=== PATIENT | female | born 1970 | race Two or more races ===

== ENCOUNTER 2021-03-31 16:44 | Emergency (ER) | payer OTHER ==
[2021-03-31 17:52] LABS: BASOPHIL 0.9 % (0-2); EOSINOPHIL 2.9 % (0-5); HCT 31.8 % (37.0-47.0); HGB 9.6 g/dl (12.5-16.0); LYMPHOCYTE 25.9 % (15-48); MCH 22.2 pg (25.0-31.0); MCHC 30.2 g/dL (32.0-36.0); MCV 73.4 fL (78.0-100.0); MONOCYTE 5.7 % (0-12); MPV 10.7 fL (6.0-9.5); NEUTROPHIL 64.4 % (41-80); NRBC 0; PLT 471 K/uL (150-400); RBC 4.33 M/uL (4.20-5.40); WBC 8.6 K/uL (4.0-10.5)
[2021-03-31 18:07] LABS: CREATININE 0.6 mg/dL (0.51-0.95); POTASSIUM 3.7 mmol/L (3.5-5.1)
[2021-03-31] MEDS ORDERED: PREDNISONE 20MG20 MG PO (18:44)
== END 2021-03-31 19:15 | disposition home or self-care (01) ==
LOC: FER 16:44
PROVIDERS: Nurse Practitioner Family
DX: M31.6 Other giant cell arteritis (principal)
CPT/HCPCS: 36415; 80048; 85025; J1100; J1885; J2405; J7030

== ENCOUNTER 2021-08-05 07:50 | Day surgery (SDCO) | payer OTHER ==
[~2021-08-05] VITALS: Ht 154.9 cm; Wt 60.3 kg
[~2021-08-05 07:50] MED LIST: PREDNISONE 20MG20 MG PO
[2021-08-05 08:13] LABS: HCG (URINE) SCREEN NEGATIVE (NEGATIVE)
[2021-08-05] MEDS ORDERED: VITAMIN C1000 MG PO (08:21)
[2021-08-05] MEDS ORDERED: TOPAMAX50 MG PO (08:21)
[2021-08-05] MEDS ORDERED: VITAMIN B125000 MCG PO (08:23)
[2021-08-05 08:36] LABS: HCT 36.1 % (37.0-47.0); HGB 10.6 g/dl (12.5-16.0); MCH 22.6 pg (25.0-31.0); MCHC 29.4 g/dL (32.0-36.0); MPV 11.1 fL (6.0-9.5); RBC 4.69 M/uL (4.20-5.40); RDW 18.3 % (11.5-14.0); WBC 5.4 K/uL (4.0-10.5)
[2021-08-05 08:54] LABS: BUN/CREAT RATIO (CALC) 13.5 RATIO; CREATININE 0.52 mg/dL (0.51-0.95); POTASSIUM 3.9 mmol/L (3.5-5.1)
[2021-08-05] MEDS ORDERED: KETOROLAC TROME10 MG PO (12:57)
[2021-08-05 15:51] LABS: BASOPHIL 0.1 % (0-2); EOSINOPHIL 0 % (0-5); HCT 29.8 % (37.0-47.0); HGB 8.6 g/dl (12.5-16.0); LYMPHOCYTE 4.1 % (15-48); MCH 22.7 pg (25.0-31.0); MCHC 28.9 g/dL (32.0-36.0); MCV 78.6 fL (78.0-100.0); MONOCYTE 0.8 % (0-12); MPV 10.9 fL (6.0-9.5); NEUTROPHIL 94.5 % (41-80); NRBC 0; PLT 328 K/uL (150-400); RBC 3.79 M/uL (4.20-5.40); RDW 18.3 % (11.5-14.0)
[2021-08-05 16:16] LABS: WBC 13.8 K/uL (4.0-10.5)
--- NOTE | 2021-08-05 19:50 | NUR ---
VITAL SIGNS STABLE, SURGERY SITE WNL AND NO BLEEDING NOTED. NO VAGINAL BLEEDING. PATIENT GIVEN APPLESAUCE AND APPLE JUICE PER REQUEST. AMBULATED TO BATHROOM WITH ASSISTANCE, VOIDED 400 CC IN POTTY HAT AND AMBULATED BACK TO BED. IN ROOM AND VERY HELPFUL AND SUPPORTIVE. RN ASKED IF PATIENT AND WOULD LIKE AN CAVING GUIDE PHONE, BUT THEY BOTH DECLINED. PLAN OF CARE DISCUSSED AND PATIENT AND AGREE. CRACKERS AND SANDWICH GIVEN. PATIENT DENIES FURTHER NEEDS AT THIS TIME. CALL LIGHT WITHIN REACH.
[2021-08-06] MEDS ORDERED: COLACE100 MG PO (06:40)
[2021-08-06] MEDS ORDERED: NORCO 5-325 TA1 EACH PO (06:40)
--- NOTE | 2021-08-06 12:42 | NUR ---
PATIENT SPOUSE HAS PROVIDED TRANSLATION, PATIENT VERBALIZES TEACHING DIRECTLY FROM RN, BUT LOOKS TO SPOUSE TO REPLY; PATIENT ABLE TO UNDERSTAND BASIC TEACHING HOWEVER REFERS TO SPOUSE FOR FOLLOW UP AFTER DISCHARGE CARE; ALL QUESTIONS ANSWERED; DISCHARGES FORMS REVIEWED, DATED AND SIGNED.
== END 2021-08-06 14:06 | disposition home or self-care (01) ==
LOC: FAS 07:50 → FOB 17:45
PROVIDERS: ADMIT Specialist
DX: D25.9 Leiomyoma of uterus, unspecified (principal); N80.0 Endometriosis of uterus; N83.202 Unspecified ovarian cyst, left side; N83.201 Unspecified ovarian cyst, right side; K21.9 Gastro-esophageal reflux disease without esophagitis; Z98.891 History of uterine scar from previous surgery
CPT/HCPCS: 36415; 80048; 84703; 85025; 86850; 86900; 86901; G0378; J0690; J1100; J1170; J1885; J2250; J2405; J2704; J2710; J2795; J3010; J7120; Q9968

== ENCOUNTER → 2022-01-05 | Day surgery (SDC) | payer OTHER ==
[~2022-01-05] VITALS: Ht 157.5 cm; Wt 59.9 kg
[~2022-01-05] MED LIST changes: +ALDACTONE25 MG PO; +COLACE100 MG PO; +DIM SGS PO; +KELP150 MCG PO; +KETOROLAC TROME10 MG PO; +MAG-OXIDE 400M400 MG PO; +NORCO 5-325 TA1 EACH PO; +THYROID PO; +TOPAMAX25 MG PO; +TOPAMAX50 MG PO; +VITAMIN B125000 MCG PO; +VITAMIN C1000 MG PO; +VITAMIN D350 MC3 PO
== END | disposition home or self-care (01) ==
LOC: FAS 12-01 10:15
DX: D17.22 Benign lipomatous neoplasm of skin and subcutaneous tissue of left arm (principal); G43.909 Migraine, unspecified, not intractable, without status migrainosus; F41.9 Anxiety disorder, unspecified; E78.5 Hyperlipidemia, unspecified; Z98.51 Tubal ligation status; Z91.011 Allergy to milk products; Z91.014 Allergy to mammalian meats
CPT/HCPCS: J1100; J2250; J2405; J2704; J3010; J7120

== ENCOUNTER → 2022-02-23 | Day surgery (SDC) | payer OTHER ==
[~2022-02-23] VITALS: Ht 157.5 cm; Wt 58.0 kg
[~2022-02-23] MED LIST changes: +IRON18 MG PO
== END | disposition home or self-care (01) ==
LOC: FAS 10:36
DX: Z12.11 Encounter for screening for malignant neoplasm of colon (principal); D64.9 Anemia, unspecified; K21.9 Gastro-esophageal reflux disease without esophagitis; E78.5 Hyperlipidemia, unspecified; Z91.014 Allergy to mammalian meats; Z91.011 Allergy to milk products
CPT/HCPCS: J2250; J2704; J7120